=== PATIENT | male | born 1970 | race African-American/Black ===

== ENCOUNTER 2019-01-25 05:17 | Emergency (ER) | payer SELFPAY ==
[2019-01-25] MEDS ORDERED: Lidocaine 1% w/Epinephrine 1:100K 20 ML VIAL ONE (05:50)
[2019-01-25] MEDS ORDERED: Bacitracin 1 PK ONE (06:54)
[2019-01-25] MEDS ORDERED: Acetaminophen 325 MG TAB ONE (07:05)
== END 2019-01-25 07:18 | disposition home or self-care (01) ==
LOC: ERS 05:17
DX: L02.212 Cutaneous abscess of back [any part, except buttock and flank] (principal); F17.220 Nicotine dependence, chewing tobacco, uncomplicated; F31.9 Bipolar disorder, unspecified; I10 Essential (primary) hypertension; Z86.73 Personal history of transient ischemic attack (TIA), and cerebral infarction without residual deficits; Z79.899 Other long term (current) drug therapy
CPT/HCPCS: 10060; J2001